=== PATIENT | female | born 2000 | race African-American/Black ===

== ENCOUNTER 2022-07-29 09:58 | Emergency (ER) | payer BC, SELFPAY ==
[2022-07-29 09:59] VITALS: BP 126/78; PULSE 78; RESP 16; TEMP 36.6; O2SAT 99; BMI 27.2
--- NOTE | 2022-07-29 10:20 | EX.ED.DYSGE1 ---
HPI History of Present Illness Chief Complaint: Rash Informant: patient Narrative Narrative: Patient presents for evaluation rash in genital region started and noted a week ago. She is at heavy. She states she had a tampon and a pad on for 4 hours noted irritation. Been using pads since,. Has stopped. Seen at urgent care 3 days ago external exam reported no significant findings however treated with nystatin and viscous lidocaine topical for symptoms. Symptoms not improving states worsening. Denies fevers. Denies pelvic pain. Denies vomiting. Denies history of STDs. Prior similar symptoms: No PFSH PFSH Medical History no medical history Home Medications dibucaine 1 % topical ointment 1 applic topical TID PRN pain #30 grams 07/29/22 [Rx Last Taken Unknown] Allergy/AdvReac Type Severity Reaction Status Date / Time No Known Allergies Allergy Verified 07/29/22 09:59 Social History Smoking Status: Never smoker ROS ROS ED Constitutional Constitutional ED: Denies chills, fever(s) or sweats Eyes Eyes: Denies change in vision ENT ENT ED: Denies dysphagia or sore throat Cardiovascular Cardiovascular: Denies chest pain, leg edema, palpitations or racing heartbeat Respiratory/Chest Respiratory/Chest: Denies cough, dyspnea or dyspnea on exertion Gastrointestinal Gastrointestinal: Denies abdominal pain, diarrhea, nausea or vomiting Genitourinary Genitourinary ED: Reports other Details: Vaginal rash ; Denies dysuria, hematuria or urinary frequency Musculoskeletal Musculoskeletal: Denies back pain, extremity pain or neck pain Integumentary Reports rash; Denies wounds Neurologic Neurologic: Denies headache(s), paresthesias or weakness EXAM Physical Exam Const Vital Signs: 07/29/22 09:59 Temperature 97.8 F Temperature Source Temporal Pulse Rate 78 Respiratory Rate 16 Blood Pressure 126/78 H Blood Pressure Mean 94 Pulse Ox 99 Oxygen Delivery Method Room Air Positive well nourished and well developed General Appearance ED: well developed and NAD HEENT Reports moist mucous membranes normocephalic and atraumatic Eyes PERRL, EOMs intact bilaterally and conjunctivae normal General Eye ED: Yes normal appearance of both eyes Neck no lymphadenopathy and supple General: Negative for tenderness Chest Wall Chest: Negative for tenderness Resp normal respiratory effort and normal air movement Effort and Inspection: symmetric chest movement; Negative for respiratory distress Cardio regular rate, regular rhythm and no murmurs Peripheral Pulses: pulses 2+ throughout GI normal to inspection, nondistended, normoactive bowel sounds and non-tender Palpation: Negative for guarding or rebound tenderness present Narrative: Nursing present for external pelvic exam: There is no vesicular ulcerations, small perineal tears noted bilaterally. No indurations no drainage. No vaginal lesions. Back/Spine no CVA tenderness and no thoracic nor lumbar tenderness Extremity normal to inspection General Extremety ED: Negative for edema or tenderness General Extremity: Negative for edema Neuro oriented x3 and no sensory deficits noted Sensorium / Orientation: awake and alert Skin no rashes or lesions noted and no wounds MDM MDM MDM Narrative Medical decision making narrative: Interventions / MDM: Differential diagnosis: Vaginal rash, perineal tears Diagnosis considered but do not suspect: No signs of STD lesion My EKG interpretation: N/A Imaging independently reviewed and interpreted by myself: N/A External documents reviewed: N/A Test considered but not ordered:N/A ED course: Patient declined full pelvic exam as external symptoms. Exam with nursing concerns more of current source and tear of perineal region. No signs of infection. Discussed continued wound care sitz bath, will provide Dibucaine topical to help with topical analgesia. She is given follow-up with gynecology if symptoms do not improve in 1 week. All questions were answered. Re-evaluation: stable Disposition discussed with patient/family/significant other: Patient Case discussed with consulting clinician: N/A Discharge Plan Triage Chief Complaint: Rash ED Provider: Chucky Lorenzo Dx/Rx/DC Orders Clinical Impression: Perineal fissure in female Instructions: ED Wound Care Prescriptions: New dibucaine 1 % ointment 1 applic topical TID PRN (Reason: pain) Qty: 30 0RF Primary Care Provider: Herber Cope Referrals: Jordyn Bruno MD [Med Staff - Active Staff] - 1 Week if not improving Activity Restrictions/Additional Instructions: Exam appears more small tears perennial region bilaterally left greater than right, there is no ulcerations for concerning herpes. Wound care as discussed, continue sitz bath's, pain ointment as prescribed. May follow-up with gynecology as given. Disposition Disposition: Home, Self Care Discharge Date/Time: 07/29/22 10:54
== END 2022-07-29 10:54 | disposition home or self-care (01) ==
PROVIDERS: Emergency Provider Emergency Medicine; PCP Pediatrics; Visit Provider Emergency Medicine
DX: N90.89 Other specified noninflammatory disorders of vulva and perineum (principal)
CPT/HCPCS: 99282